=== PATIENT | male | born 1980 | race Caucasian/White ===

== ENCOUNTER 2021-01-18 19:06 | Emergency (ER) | payer SELFPAY ==
[~2021-01-18] VITALS: Ht 182.9 cm; Wt 195.0 kg
[2021-01-18 19:47] LABS: BASOPHILS % (AUTO) 0.8 % (0.0-5.0); EOSINOPHILS % (AUTO) 4.2 % (0.0-8.0); HEMATOCRIT 39.5 % (42-54); MEAN CORPUSCULAR HEMOGLOBIN 27.3 pg (27.0-33.0); MEAN CORPUSCULAR HGB CONC 31.1 g/dL (32.0-36.0); MEAN CORPUSCULAR VOLUME 87.6 fL (79-99); MONOCYTES % (AUTO) 6.5 % (3.0-13.0); NEUTROPHILS % (AUTO) 69.2 % (40.0-77.0); PLATELET COUNT (AUTO) 288 K/uL (130-400); RED BLOOD CELL COUNT(AUTO) 4.51 MIL/uL (4.50-6.20); RED CELL DISTRIBUTION WIDTH 14.2 % (11.0-15.5); WHITE BLOOD COUNT (AUTO) 9.7 K/uL (4.8-10.8)
[2021-01-18 19:57] LABS: CREATININE 0.9 mg/dL (0.5-1.5); POTASSIUM 4.7 mmol/L (3.5-5.1)
[2021-01-18 20:02] LABS: ALBUMIN 3.6 g/dL (3.5-5.0); B-TYPE NATRIURETIC PEPTIDE < 5 pg/mL (0-100); BILIRUBIN,TOTAL 0.4 mg/dL (0.2-1.0); TOTAL PROTEIN, SERUM 8.2 g/dL (6.0-8.3)
[2021-01-18] MEDS ORDERED: NAPR-1180 PO (22:21)
[2021-01-18] MEDS ORDERED: KETOROLAC 30MG VIAL (30MG/ML) IV ONE (22:30)
[2021-01-18 22:42] VITALS: BP 143/72
== END 2021-01-18 23:00 | disposition home or self-care (01) ==
LOC: EDH 19:06
DX: L97.221 Non-pressure chronic ulcer of left calf limited to breakdown of skin (principal); Z79.1 Long term (current) use of non-steroidal anti-inflammatories (NSAID)
CPT/HCPCS: 36415; 80053; 82550; 83605; 83880; 84145; 85025; 93970; J1885

== ENCOUNTER 2024-05-19 17:31 | Emergency (ER) | payer OTHER ==
[~2024-05-19] VITALS: Ht 182.9 cm; Wt 204.1 kg
[~2024-05-19 17:31] MED LIST: CLIN-141 PO; NAPR-1180 PO
--- NOTE | 2024-05-19 17:38 | ERN ---
ED Note History of Present Illness Stated Complaint: LARGE ULCER ON CALF Chief Complaint: Wound Check Time Seen by MD: 17:32 Dictation: Patient is a 44-year-old male here with a large ulcerated area to the posterior left calf he has had for several weeks. No fever no chills no nausea no vomiting no history of diabetes per patient. 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 No primary care doctor because I have no insurance. Allergies: Coded Allergies: No Known Allergies (Unverified Allergy, Unknown, 01/18/21) Home Meds Active Scripts Clindamycin HCl (Clindamycin HCl) 300 Mg Capsule, 300 MG PO QID for 7 Days, #28 CAP Prov:NUBIA JACOBO MD 09/24/21 Naproxen (Naprosyn) 500 Mg Tablet, 500 MG PO BIDPC for 10 Days, #20 TAB 0 Refi lls Prov:ANKIT LAMA MD 01/18/21 Past Medical History Past Medical History: Other Additional Past Medical Hx: PVD, VENOUS STASIS ULCER, OBESITY Surgical History: Other Surgical History Other: SCALP Social History: Negative RN Note Reviewed/Agreed w/PFSH: Yes Review of System Dictation CONSTITUTIONAL: NEGATIVE EXCEPT FOR HPI HEAD/FACE: NEGATIVE EXCEPT FOR HPI EENT: NEGATIVE EXCEPT FOR HPI RESPIRATORY: NEGATIVE EXCEPT FOR HPI GASTROINTESTINAL/ABDOMINAL: NEGATIVE EXCEPT FOR HPI GENITOURINARY: NEGATIVE EXCEPT FOR HPI MUSCULOSKELETAL: NEGATIVE EXCEPT FOR HPI INTEGUMENTARY: NEGATIVE EXCEPT FOR HPI EARLY STAGE II STASIS ULCER TO LEFT POSTERIOR CALF. CHRONIC DISCOLORATION OF SKIN BILATERALLY NEUROLOGICAL/PSYCH: NEGATIVE EXCEPT FOR HPI HEMATOLOGIC/LYMPHATIC: NEGATIVE EXCEPT FOR HPI ALL SYSTEMS NEGATIVE, EXCEPT NOTED ABOVE. 13 POINT REVIEW OF SYSTEMS ASSESSED AND ALL NEGATIVE EXCEPT FOR ABOVE. Initial Vital Sign VS Vital Signs Date Time Temp Pulse Resp B/P (MAP) Pulse Ox O2 Delivery O2 Flow Rate FiO2 05/19/24 17:36 97.9 87 16 178/93 100 Room Air 0 Physical Exam Dictation VITAL SIGNS REVIEWED GENERAL APPEARANCE: ALERT, ORIENTED X 3, NO ACUTE DISTRESS, WELL DEVELOPED, NOURISHED. MORBIDLY OBESE HEAD AND FACE: NON-TRAUMATIC. EYES: PERRL, PINK CONJUNCTIVAS, EYELID NO TRAUMA, ANTERIOR CHAMBER WITH ARCUS SENILIS. EARS: PINNAS INTACT AND NO SIGNS OF TRAUMA OR ERYTHEMA EAR CANALS CLEAR AND NO DISCHARGE TM NO ERYTHEMA NOSE: NO DISCHARGE, NO BLEEDING. OROPHARYNX: MOUTH NORMAL, TONGUE PINK, PHARYNX CLEAR,NO ERYTHEMA, TONSILS NO EXUDATES, NO ABSCESSES NOTED, MUCOUS MEMBRANE MOIST NECK: SUPPLE, NON-TENDER, NO THYROMEGALY, NO MASSES, NO JVD, NO BRUITS BREAST:DEFERRED CHEST:NO TENDERNESS, NO CREPITUS, NO PARADOXICAL MOVEMENT, NO RETRACTIONS LUNGS:CLEAR, WELL-VENTILATED, SYMMETRIC, NO RALES, NO WHEEZING, NO RHONCHI, NO STRIDOR, GOOD BREATH SOUNDS BILATERALLY HEART: REGULAR RATE, REGULAR RHYTHM, NO MURMUR, NO GALLOPS VASCULAR: NO PERIPHERAL EDEMA, ABDOMEN: SOFT, POSITIVE BOWEL SOUNDS, NONDISTENDED, NO GUARDING, NONTENDER, NO REBOUND, NO MASSES NO HEPATOMEGALY, NO SPLENOMEGALY, NO BRISCOE'S SIGN, NO HERNIAS. RECTAL: DEFERRED GENITAL: DEFERRED NEUROLOGICAL: NORMAL SPEECH, MOTOR FUNCTION INTACT, SENSORY FUNCTION INTACT MUSCULOSKELETAL: NECK NONTENDER, FULL RANGE OF MOTION, BACK NONTENDER, FULL RANGE OF MOTION, EXTREMITIES: NONTENDER, FULL RANGE OF MOTION SKIN: COLOR PINK,3 X 3 CM STAGE II ULCER TO LEFT POSTERIOR CALF CHRONIC SKIN DISCOLORATION TO BOTH LOWER EXTREMITIES DUE TO VENOUS INSUFFICIENCY LYMPHATIC: DEFERRED Results (Laboratory/Radiology) Laboratory/Radiology Laboratory Tests Test 05/19/24 18:08 White Blood Count 11.0 K/uL (4.8-10.8) H Red Blood Count 4.70 MIL/uL (4.50-6.20) Hemoglobin 12.7 g/dL (14.0-18.0) L Hematocrit 41.5 % (42-54) L Mean Corpuscular Volume 88.3 fL (79-99) Mean Corpuscular Hemoglobin 27.0 pg (27.0-33.0) Mean Corpuscular Hemoglobin Concent 30.6 g/dL (32.0-36.0) L Red Cell Distribution Width 14.3 % (11.0-15.5) Platelet Count 262 K/uL (130-400) Mean Platelet Volume 11.4 fL (7.5-10.5) H Immature Granulocyte % (Auto) 0.5 % (0-1) Neutrophils (%) (Auto) 74.5 % (40.0-77.0) Lymphocytes (%) (Auto) 17.4 % (21.0-51.0) L Monocytes (%) (Auto) 4.8 % (3.0-13.0) Eosinophils (%) (Auto) 2.4 % (0.0-8.0) Basophils (%) (Auto) 0.4 % (0.0-5.0) Neutrophils # (Auto) 8.2 K/uL (1.8-7.7) H Lymphocytes # (Auto) 1.9 K/uL (1.0-4.8) Monocytes # (Auto) 0.5 K/uL (0.1-1.0) Eosinophils # (Auto) 0.27 K/uL (0.00-0.70) Basophils # (Auto) 0.04 K/uL (0.00-0.20) Absolute Immature Granulocyte (auto 0.05 K/uL (0-1) Nucleated Red Blood Cells 0.0 % (0.0-0.19) Red Blood Cell Morphology See comments Sodium Level 139 mmol/L (136-145) Potassium Level 3.8 mmol/L (3.5-5.1) Chloride Level 103 mmol/L (101-111) Carbon Dioxide Level 31 mmol/L (21-32) Blood Urea Nitrogen 11 mg/dL (7-18) Creatinine 0.9 mg/dL (0.5-1.3) Glomerular Filtration Rate Calc 109 mL/min (>90) Random Glucose 94 mg/dL (70-105) Lactic Acid Level 2.4 mmol/L (0.8-2.5) Total Calcium 8.8 mg/dL (8.5-10.1) Labs Reviewed?: Yes ED Course ED Course Orders Procedure Category Date Status Time Blood Cult REUBEN 05/19/24 In Process 17:37 Lactic Acid LAB 05/19/24 Complete 17:37 Cbc With Differential LAB 05/19/24 Complete 17:37 Basic Metabolic Panel LAB 05/19/24 Complete 17:37 0.9%Nacl 1000ml (Ns PHA 05/19/24 In Process 1000ml) 18:30 Ceftriaxone 1g Vial PHA 05/19/24 In Process (Rocephine 1g Inj) 18:30 Current Medications Medications (Trade) Dose Ordered Sig/Mehrdad Route PRN Reason Start Time Stop Time Status Last Admin Dose Admin Ceftriaxone Sodium (ROCEphine 1G INJ) 1 gm ONCE IVPB 05/19/24 18:30 05/19/24 22:30 05/19/24 19:00 Sodium Chloride 1,000 ml @ 0 mls/hr ONCE IV 05/19/24 18:30 05/20/24 18:29 05/19/24 18:59 Vital Signs Date Time Temp Pulse Resp B/P (MAP) Pulse Ox O2 Delivery O2 Flow Rate FiO2 05/19/24 17:36 97.9 87 16 178/93 100 Room Air 0 1942 PATIENT IS HEMODYNAMICALLY STABLE NO FEVER. HE WAS GIVEN1 L NORMAL SALINE WITH ROCEPHIN1 G. HE WILL BE DISCHARGED HOME WITH BACTROBAN AND CLINDAMYCIN, REFERRED TO DR. UZMA BILL FOR WOUND CARE Medical Decision Making MDM MEDICAL DISCHARGE MAKING BASED ON BASIC LABS WITH CULTURE AND LACTIC ACID. LACTIC ACID 2.4 PATIENT WAS TREATED WITH NORMAL SALINE AND ROCEPHIN WE WILL DISCHARGE PATIENT HOME WITH CLINDAMYCIN AND BACTROBAN. HE WILL BE REFERRED TO DR. UZMA BILL FOR FOLLOW UP DX & DISP Disposition: Discharge Departure Impression: Primary Impression: Venous stasis ulcer of left calf Additional Impressions: Venous insufficiency of both lower extremities, Morbid obesity, Elevated lactic acid level Condition: Stable Scripts Clindamycin HCl (Clindamycin HCl) 300 Mg Capsule 1 CAP PO QID for 10 Days, #40 CAP 0 Refills Prov: STAR PITTMAN NP 05/19/24 Mupirocin (Bactroban 2% Oint) 2 % Oint 1 APPL TP TID for 7 Days, #22 GM 0 Refills apply to affected area(s) Prov: STAR PITTMAN NP 05/19/24 Additional Instructions: FOLLOW-UP WITH PRIMARY CARE PROVIDER IN 1 TO 2 DAYS. TAKE MEDICATIONS DIRECTED HERE IN THE EMERGENCY ROOM. OKAY TO CONTINUE HOME MEDICATIONS UNLESS OTHERWISE DISCUSSED DURING YOUR VISIT IN THE EMERGENCY ROOM TODAY. RETURN TO YOUR NEAREST EMERGENCY ROOM IF SYMPTOMS WORSEN OR IF THERE IS NO IMPROVEMENT. CALL 911 IF YOU NEED IMMEDIATE ASSISTANCE. TAKE TYLENOL OR MOTRIN [id number] NEEDED AND IF NO CONTRAINDICATIONS ARE PRESENT. INCREASE ORAL HYDRATION. A WOUND CULTURE OR URINE CULTURE WAS ORDERED HERE IN THE EMERGENCY ROOM DEPARTMENT PLEASE FOLLOW-UP WITH PRIMARY CARE PROVIDER AND ADVISE THEM TO GET REPEAT PORTS FROM OUR FACILITY. IF YOU HAD ANY ARLET WRAP/SPLINTS THAT WERE APPLIED HERE, PLEASE DO NOT REMOVE THEM UNTIL YOU SEE YOUR PRIMARY CARE OR SPECIALTY. WASH ULCER WELL WITH SOAP AND WATER. DRY THOROUGHLY, APPLY BACTROBAN3 TIMES A DAY FOR SEVEN DAYS WITH DRESSING. TAKE CLINDAMYCIN DIRECTED UNTIL GONE. CALL [facility] FOR AN APPOINTMENT IN THE NEXT 1-2 DAYS. Referrals: JAVON ORDOÑEZ MD (PCP) UZMA BILL MD Time of Disposition: 19:43 I have reviewed the case, and I agree with, Diagnosis and Plan STAR PITTMAN NP May 19, 2024 17:38
[2024-05-19 18:20] LABS: BASOPHILS # (AUTO) 0.04 K/uL (0.00-0.20); BASOPHILS % (AUTO) 0.4 % (0.0-5.0); EOSINOPHILS # (AUTO) 0.27 K/uL (0.00-0.70); EOSINOPHILS % (AUTO) 2.4 % (0.0-8.0); HEMATOCRIT 41.5 % (42-54); IMMATURE GRANULOCYTE ABSOLUTE 0.05 K/uL (0-1); LYMPHOCYTES # (AUTO) 1.9 K/uL (1.0-4.8); LYMPHOCYTES % (AUTO) 17.4 % (21.0-51.0); MEAN CORPUSCULAR HGB CONC 30.6 g/dL (32.0-36.0); MEAN CORPUSCULAR VOLUME 88.3 fL (79-99); MONOCYTES # (AUTO) 0.5 K/uL (0.1-1.0); MONOCYTES % (AUTO) 4.8 % (3.0-13.0); NEUTROPHILS # (AUTO) 8.2 K/uL (1.8-7.7); NEUTROPHILS % (AUTO) 74.5 % (40.0-77.0); PLATELET COUNT (AUTO) 262 K/uL (130-400); RED CELL DISTRIBUTION WIDTH 14.3 % (11.0-15.5)
[2024-05-19 18:37] LABS: CREATININE 0.9 mg/dL (0.5-1.3); POTASSIUM 3.8 mmol/L (3.5-5.1)
[2024-05-19] MEDS: 0.9%NACL 1000ML 1,000 ML IV SCH (18:59)
[2024-05-19] MEDS: cefTRIAXone 1G VIAL IVPB SCH (19:00)
[2024-05-19] MEDS ORDERED: MUPI22O TP (19:44)
[2024-05-19] MEDS ORDERED: CLIN-141 PO (19:44)
[2024-05-19 20:43] VITALS: BP 169/84; PULSE 75; RESP 20; TEMP 98.4; O2SAT 100
== END 2024-05-19 20:51 | disposition home or self-care (01) ==
LOC: EDH 17:31
DX: I83.022 Varicose veins of left lower extremity with ulcer of calf (principal); I87.2 Venous insufficiency (chronic) (peripheral); E87.20 Acidosis, unspecified; E66.01 Morbid (severe) obesity due to excess calories; Z68.44 Body mass index [BMI] 60.0-69.9, adult
CPT/HCPCS: 99284; 96365; 96366; 80048; 85025; 87040 ×2; 83605; 36415; J7030; J0696

== ENCOUNTER 2024-05-30 14:14 | Emergency (ER) | payer OTHER ==
[~2024-05-30] VITALS: Ht 182.9 cm; Wt 204.1 kg
[~2024-05-30 14:14] MED LIST changes: +MUPI22O TP
[2024-05-30] MEDS: DiphenhydrAMINE HCL 50 MG/ML VIAL IV ONE (16:24)
[2024-05-30] MEDS: FAMOTIDINE 20MG VIAL IV ONE (16:24)
[2024-05-30] MEDS: Solu-medROL 125MG VIAL IVP ONE (16:24)
--- NOTE | 2024-05-30 16:45 | ERN ---
General Chief Complaint: Allergic Reaction Stated Complaint: ALLERGIC REACTION Time Seen by MD: 14:25 Time Seen by Midlevel: 14:25 Source: patient History of Present Illness Initial Comments Patient is a 44-year-old male presenting to the emergency department for evaluation of an allergic reaction. Patient states he was seen in our ER proximally one week ago and was started on clindamycin for a leg ulcer. He states the 2nd day after taking clindamycin he developed a rash to his entire body. The patient continued with the medication until the itchiness became unbearable. Today he reports hives to his entire body but specifically denies any shortness of breath, tongue swelling, or any other symptoms at this time. Allergies: Coded Allergies: clindamycin (Unverified Allergy, Intermediate, 05/30/24) Home Meds Active Scripts Methylprednisolone (Medrol) 4 Mg Tab.ds.pk, 1 TAB PO AD for 6 Days, #21 TAB 0 Refills 6 on day 1 then reduce by one tablet daily until gone Prov:JANICE RANGEL 05/30/24 Sulfamethoxazole/Trimethoprim (Bactrim Ds Tablet) 800 Mg-160 Mg Tablet, 1 TAB PO BID for 7 Days, #14 TAB 0 Refills Prov:JANICE RANGEL 05/30/24 Clindamycin HCl (Clindamycin HCl) 300 Mg Capsule, 1 CAP PO QID for 10 Days, #40 CAP 0 Refills Prov:STAR PITTMAN NP 05/19/24 Mupirocin (Bactroban 2% Oint) 2 % Oint, 1 APPL TP TID for 7 Days, #22 GM 0 Refills apply to affected area(s) Prov:STAR PITTMAN NP 05/19/24 Clindamycin HCl (Clindamycin HCl) 300 Mg Capsule, 300 MG PO QID for 7 Days, #28 CAP Prov:NUBIA JACOBO MD 09/24/21 Naproxen (Naprosyn) 500 Mg Tablet, 500 MG PO BIDPC for 10 Days, #20 TAB 0 Refills Prov:ANKIT LAMA MD 01/18/21 Past Medical History Past Medical History: No Pertinent History Medical History Other: PVD, VENOUS STASIS ULCER, OBESITY Past Surgical History: None Surgical History Other: SCALP Social History Social History: Negative ROS Dictation CONSTITUTIONAL: Negative except for HPI HEAD/FACE: Negative except for HPI EENT: Negative except for HPI RESPIRATORY: Negative except for HPI GASTROINTESTINAL/ABDOMINAL: Negative except for HPI GENITOURINARY: Negative except for HPI MUSCULOSKELETAL: Negative except for HPI INTEGUMENTARY: Negative except for HPI NEUROLOGICAL/PSYCH: Negative except for HPI HEMATOLOGIC/LYMPHATIC: Negative except for HPI All Systems Negative, Except as noted above. 13 point review of systems assessed and all negative except for above. Physical Exam Physical Exam Dictation Vital Signs reviewed General Appearance: Alert, oriented x 3, no acute distress, well developed, nourished. Head and Face: non-traumatic. Eyes: PERRL, pink conjunctivas, eyelid no trauma, anterior chamber with arcus senilis. Ears: Pinnas intact and no signs of trauma or erythema ear canals clear and no discharge TM no erythema Nose: No discharge, no bleeding. Oropharynx: Mouth normal, tongue pink, pharynx clear,no erythema, tonsils no exudates, no abscesses noted, mucous membrane moist Neck: Supple, non-tender, no thyromegaly, no masses, no JVD, no bruits Breast:Deferred Chest:No tenderness, no crepitus, no paradoxical movement, no retractions Lungs:Clear, well-ventilated, symmetric, no rales, no wheezing, no rhonchi, no stridor, good breath sounds bilaterally Heart: Regular rate, regular rhythm, no murmur, no gallops Vascular: no peripheral edema, Abdomen: Soft, positive bowel sounds, nondistended, no guarding, nontender, no rebound, no masses no hepatomegaly, no splenomegaly, no Robins's sign, no hernias. Rectal: Deferred Genital: Deferred Neurological: Normal speech, motor function intact, sensory function intact Musculoskeletal: Neck nontender, full range of motion, back nontender, full range of motion, Extremities: nontender, full range of motion Skin: Generalized hives Lymphatic: Deferred MDM MDM: Differential diagnosis: Acute allergic reaction, anaphylaxis, medication reaction There are no social concerns with this patient. Prescription drug management Prescriptions will include: Medrol pack Medical management and examination interpretation discussions were had by [facility] th other qualified healthcare professionals as indicated for the patient's care. ED Course Orders Procedure Category Date Status Time Methylprednisolone PHA 05/30/24 Complete Succ 125mg (Solu-Medr 16:30 Diphenhydramine Hcl PHA 05/30/24 Complete (Benadryl Inj) 16:30 Famotidine 20mg Vial PHA 05/30/24 Complete (Pepcid 20mg Vial) 16:30 Current Medications Medications (Trade) Dose Ordered Sig/Mehrdad Route PRN Reason Start Time Stop Time Status Last Admin Dose Admin Diphenhydramine HCl (BENAdryl INJ) 50 mg ONCE ONCE IV 05/30/24 16:30 05/30/24 16:31 DC 05/30/24 16:24 Famotidine (Pepcid 20mg Vial) 20 mg ONCE ONCE IV 05/30/24 16:30 05/30/24 16:31 DC 05/30/24 16:24 Methylprednisolone Sodium Succinate (Solu-medROL 125MG) 125 mg ONCE ONCE IVP 05/30/24 16:30 05/30/24 16:31 DC 05/30/24 16:24 Vital Signs Date Time Temp Pulse Resp B/P (MAP) Pulse Ox O2 Delivery O2 Flow Rate FiO2 05/30/24 14:30 98.2 80 20 164/92 99 Room Air 0 DX & DISP Disposition: Discharge Departure Impression: Primary Impression: Acute allergic reaction Condition: Stable Scripts Methylprednisolone (Medrol) 4 Mg Tab.ds.pk 1 TAB PO AD for 6 Days, #21 TAB 0 Refills 6 on day 1 then reduce by one tablet daily until gone Prov: JANICE RANGEL 05/30/24 Sulfamethoxazole/Trimethoprim (Bactrim Ds Tablet) 800 Mg-160 Mg Tablet 1 TAB PO BID for 7 Days, #14 TAB 0 Refills Prov: JANICE RANGEL 05/30/24 Additional Instructions: It appears your having an allergic reaction to the clindamycin your prescribed. Please stop taking clindamycin. I have given you a prescription for Bactrim. Follow up with your primary care doctor in 2-3 days for repeat evaluation. Referrals: SELF,REFERRAL (PCP) Time of Disposition: 16:47 I have reviewed the case, and I agree with, Diagnosis and Plan I performed the substantive portion of the visit. I have reviewed and personally made and approve the management plan that is documented in the note by myself or the MIKAYLA. I acknowledge for responsibility for the patient's ma nagement plan. JANICE RANGEL May 30, 2024 16:45
[2024-05-30] MEDS ORDERED: SULF1TAB42 PO (16:47)
[2024-05-30] MEDS ORDERED: METH4TAB3 PO (16:48)
[2024-05-30 16:56] VITALS: BP 151/87; PULSE 76; RESP 20; TEMP 98.2; O2SAT 99
== END 2024-05-30 17:05 | disposition home or self-care (01) ==
LOC: EDH 14:14
DX: T78.40XA Allergy, unspecified, initial encounter (principal); E66.9 Obesity, unspecified; Z88.1 Allergy status to other antibiotic agents; Z79.899 Other long term (current) drug therapy; X58.XXXA Exposure to other specified factors, initial encounter
CPT/HCPCS: 99284; 96374; 96375; J2919; J1200; J3490